=== PATIENT | female | born 1995 | race African-American/Black ===

== ENCOUNTER 2019-11-19 16:02 | Emergency (ER) | payer OTHER, SELFPAY | END 2019-11-19 17:52 | disposition home or self-care (01) | LOC: ERS 16:02 | DX: O21.9 Vomiting of pregnancy, unspecified (principal); Z87.891 Personal history of nicotine dependence; Z3A.11 11 weeks gestation of pregnancy | CPT/HCPCS: 87081; 87430; 99283 ==